=== PATIENT | male | born 1990 | race Caucasian/White ===

== ENCOUNTER 2019-03-08 19:53 | Emergency (ER) | payer BC ==
[~2019-03-08] VITALS: Ht 188 cm; Wt 104.3 kg
[~2019-03-08 19:53] MED LIST: TETR250; [UNRECOGNIZED DRUG - OTHER]
[2019-03-08] MEDS ORDERED: Vibramycin100 MG PO (22:51)
== END 2019-03-08 23:00 | disposition home or self-care (01) ==
LOC: ER 19:53
DX: L02.415 Cutaneous abscess of right lower limb (principal); L03.113 Cellulitis of right upper limb; Z88.0 Allergy status to penicillin; Z88.8 Allergy status to other drugs, medicaments and biological substances
CPT/HCPCS: 99283